=== PATIENT | male | born 1960 | race Caucasian/White ===

== ENCOUNTER 2016-10-25 07:04 | Emergency (ER) | payer OTHER ==
--- NOTE | 2016-10-25 07:28 | EDPHY ---
H & P Time Seen by Provider: 10/25/16 07:27 HPI/ROS: Chief complaint. Toe swelling HPI. 56-year-old male with pain, redness, swelling to the base of the right 2nd toe starting today. He is not aware of any injury. No fever. Hurts to walk. No history of gout. No other complaints. No similar symptoms previously. No previous injury or trauma to this toe ROS Constitutional. no fever/chills, no weakness Eyes. no problems with vision ENT. no sore throat, no nasal drainage Cardiovascular. no chest pain Respiratory. no shortness of breath, no cough Abdominal. no abdominal pain, no nausea/vomiting, no diarrhea . no problems urinating MS. Right 2nd toe pain, redness, swelling Skin. no rash Lymph. no swollen glands Neuro. no headache, no dizziness, no difficulty walking or with speech Past Medical/Surgical History: eye muscle correction, knee surgery, hernia repair Social History: Single, nonsmoker, no alcohol Smoking Status: Never smoked Physical Exam: General Appearance: Alert well-developed male mild distress vital signs are stable. Afebrile Eyes: Pupils equal and round no pallor or injection. ENT, Mouth: Mucous membranes are moist. Respiratory: There are no retractions, lungs are clear to auscultation. Cardiovascular: Regular rate and rhythm. Gastrointestinal: Abdomen is soft and nontender, no masses, bowel sounds normal. Neurological: Awake and alert, sensory and motor exams grossly normal. Skin: Warm and dry, no rashes. Musculoskeletal: Neck is supple nontender. Extremities erythema and mild swelling to the base of the right 2nd toe especially between the MTP joint and the PIP joint. No deformity. No lymphangitis. No obvious evidence of laceration or break in the skin Psychiatric: Patient is oriented X 3, there is no agitation. Constitutional: Initial Vital Signs Temperature (C) 36.4 C 10/25/16 07:05 Heart Rate 62 10/25/16 07:05 Respiratory Rate 169 H 10/25/16 07:05 Blood Pressure 142/88 H 10/25/16 07:05 O2 Sat (%) 94 10/25/16 07:05 O2 Delivery Mode Room Air Allergies/Adverse Reactions: No Known Allergies Allergy (Unverified 10/25/16 07:06) Home Medications: Medication Instructions Recorded Cephalexin [Keflex (*)] 500 mg PO TID #21 cap 10/25/16 Indomethacin [Indocin 25 mg (*)] 25 mg PO TID #14 cap 10/25/16 Medical Decision Making - Diagnostics Imaging: X-ray right 2nd toe interpreted by me as negative for fracture dislocation ED Course/Re-evaluation: Re-evaluation 7:55 a.m. patient is stable. The patient and I discussed imaging study results, treatment plan including criteria for return importance of follow-up and further evaluation. He expresses understanding and agreement Differential Diagnosis: I considered fracture, sprain, cellulitis, gout Departure - Departure Disposition: Home, Routine, Self-Care Clinical Impression: Cellulitis, toe Qualifiers: Laterality: right Qualifier Code: (L03.031) Cellulitis of right toe Condition: Good Instructions: Cellulitis (ED) Additional Instructions: Cephalexin as antibiotic. Indocin as anti-inflammatory to help with pain and swelling. Activity as tolerated. Return for worsening pain, redness, swelling. Recheck in 2 days if not improved Referrals: Niharika Villagran MD [Medical Doctor] - 2-3 days, if not improved Prescriptions: Indomethacin [Indocin 25 mg (*)] 25 mg PO TID #14 cap Cephalexin [Keflex (*)] 500 mg PO TID #21 cap
[2016-10-25 08:14] VITALS: BP 138/92; PULSE 50; RESP 16; TEMP 98.1; O2SAT 95
--- NOTE | 2016-10-25 08:36 | DX ---
Right Second Toe, Three Views History: Pain with no known injury. Comparison: None available. Findings: No fracture is identified. There is moderate hallux valgus with moderate degenerative hayes e of the first metatarsophalangeal joint. There is a small erosion at the medial aspect of the head o f the proximal phalanx of the second toe with mild degenerative change in the proximal interphalangea l joints of the second and third toes. Contour deformity of the second and fifth metatarsals suggests sequela of old healed fractures. Impression: 1. No acute osseous findings. 2. Moderate hallux valgus with moderate degenerative change. 3. Erosion versus subchondral cystic degenerative change in the head of the proximal phalanx of the s econd toe.
== END 2016-10-25 08:15 | disposition home or self-care (01) ==
DX: L03.031 Cellulitis of right toe (principal)